=== PATIENT | female | born 1965 | race Caucasian/White ===

== ENCOUNTER → 2020-02-14 16:12 | Outpatient (CLI) | payer BC, SELFPAY ==
--- NOTE | ~2020-02-14 | MM_ITS ---
EXAMINATION: MM screening [facility] BI w jae HISTORY: Screening mammogram TECHNIQUE: Craniocaudal and mediolateral oblique 3-D tomosynthesis images were obtained and synthetic 2-D images were generated. CAD analysis was submitted and interpreted. COMPARISON: Comparison to multiple prior studies sequentially, with oldest reviewed study dated 08/20. BREAST PARENCHYMAL COMPOSITION: The breasts are heterogeneously dense, which may obscure small masses . FINDINGS: There are developing asymmetries in the upper outer quadrant of the right breast. The left breast is stable without evidence for malignancy. IMPRESSION: 1. Developing right breast asymmetries, upper outer quadrant. 2. Additional mammographic views and possible breast ultrasound are recommended. BI-RADS Category 0: Incomplete: Needs additional imaging evaluation. Reviewed, dictated and finalized at location A. IMPRESSION: 1. Developing right breast asymmetries, upper outer quadrant. 2. Additional mammographic views and possible breast ultrasound are recommended . BI-RADS Category 0: Incomplete: Needs additional imaging evaluation.
== END ==
PROVIDERS: PCP Internal Medicine; Visit Provider Obstetrics & Gynecology
DX: Z12.31 Encounter for screening mammogram for malignant neoplasm of breast (principal); R92.8 Other abnormal and inconclusive findings on diagnostic imaging of breast
CPT/HCPCS: 77063; 77067

== ENCOUNTER → 2020-03-05 07:42 | Outpatient (CLI) | payer BC, SELFPAY ==
--- NOTE | ~2020-03-05 | MM_ITS ---
EXAMINATION: MM diagnostic mammo unilat RT HISTORY: Right breast asymmetries on screening mammogram TECHNIQUE: Additional 3-D tomosynthesis images of the right breast were performed and synthetic 2-D i mages were generated. CAD analysis was submitted and interpreted. COMPARISON: 02/14/2020, 01/24/2019, 01/22/2018, 10/23/2015 FINDINGS: No persistent asymmetry is identified with spot compression of the right breast. There is a return to baseline fibroglandular appearance. No suspicious calcification or architectural distortio n are identified. IMPRESSION: 1. No mammographic evidence of malignancy. 2. Recommend routine screening mammography in one year. BI-RADS Category 1: Negative Reviewed, dictated and finalized at location A.
== END ==
PROVIDERS: PCP Internal Medicine; Visit Provider Obstetrics & Gynecology
DX: R92.8 Other abnormal and inconclusive findings on diagnostic imaging of breast (principal)
CPT/HCPCS: 77065

== ENCOUNTER 2020-05-22 12:31 | Outpatient (CLI) | payer BC, SELFPAY ==
--- NOTE | ~2020-05-22 | US_ITS ---
EXAMINATION: US retroperitoneal comp EXAM DATE: 05/22/2020 13:25 INDICATION: Chronic kidney disease. TECHNIQUE: Multiple grayscale and Doppler images of the retroperitoneum, kidneys were obtained (by a technologist who performed the scan) and subsequently reviewed. Comparison is made to prior examinati on from 07/24/2018. FINDINGS: There is moderate bilateral renal cortical thinning. Right kidney: There is normal contour and echogenicity. It measures 9.1 x 5.1 x 4.3 centimeters. Th ere are no focal renal lesions identified. There is no hydronephrosis. Left kidney: There is normal contour and echogenicity. It measures 9.7 x 5.2 x 5.2 centimeters. The re are no focal renal lesions identified. There is no hydronephrosis. Bladder unremarkable. IMPRESSION: 1. Moderate bilateral renal cortical thinning. Reviewed, dictated and finalized at location B.
== END 2020-05-22 12:32 | disposition home or self-care (01) ==
PROVIDERS: PCP Internal Medicine
DX: N18.9 Chronic kidney disease, unspecified (principal)
CPT/HCPCS: 76770

== ENCOUNTER → 2020-07-17 16:01 | Outpatient (CLI) | payer BC, SELFPAY ==
--- NOTE | ~2020-07-17 | XR_ITS ---
EXAMINATION: XR foot LT min 3V, XR ankle LT min 3V EXAM DATE: 07/17/2020 16:24 INDICATION: No known recent injury provided at this time. Pain of the left foot and ankle anteriorly . TECHNIQUE: Left foot dorsoplantar, lateral and oblique projections obtained and reviewed. Left ankle frontal, lateral and oblique projections obtained and reviewed. There is no prior study for compari son. FINDINGS: Left metatarsal bones unremarkable. The left ankle mortise appears intact. There are no acute fractures or dislocations identified. There is no subcutaneous gas. The soft tissue is unrem arkable. There are no radiopaque foreign bodies. IMPRESSION: 1. Unremarkable left foot, ankle exam. Reviewed, dictated and finalized at location B. IMPRESSION: 1. Unremarkable left foot, ankle exam.
--- NOTE | ~2020-07-17 | XR_ITS ---
EXAMINATION: XR ankle RT min 3V, XR foot RT min 3V EXAM DATE: 07/17/2020 16:24 INDICATION: Anterior and medial right foot and ankle pain intermittent. TECHNIQUE: Right foot dorsoplantar, lateral and oblique projections obtained and reviewed. Right ank le frontal, lateral and oblique projections obtained and reviewed. There is no prior study for [facility]. FINDINGS: Right metatarsal bones unremarkable. The right ankle mortise appears intact. There are n o acute fractures or dislocations identified. There is no subcutaneous gas. The soft tissue is unre markable. There are no radiopaque foreign bodies. IMPRESSION: 1. Unremarkable right foot, ankle exam. Reviewed, dictated and finalized at location B. IMPRESSION: 1. Unremarkable right foot, ankle exam.
== END ==
PROVIDERS: Visit Provider Nurse Practitioner Adult Health
DX: M25.571 Pain in right ankle and joints of right foot (principal)
CPT/HCPCS: 73610; 73630

== ENCOUNTER → 2021-04-22 17:03 | Outpatient (CLI) | payer BC, SELFPAY ==
--- NOTE | ~2021-04-22 | MM_ITS ---
EXAMINATION: MM screening [facility] BI w jae HISTORY: Screening mammogram TECHNIQUE: Craniocaudal and mediolateral oblique 3-D tomosynthesis images were obtained and synthetic 2-D images were generated. CAD analysis was submitted and interpreted. COMPARISON: No prior mammogram is available for comparison at this institution. BREAST PARENCHYMAL COMPOSITION: The breasts are heterogeneously dense, which may obscure small masses . FINDINGS: Occasional benign calcification. There is no evidence of suspicious mass, calcification, or architectural distortion to suggest malignancy in either breast. There has been no suspicious interv al change. IMPRESSION: 1. No mammographic evidence of malignancy. 2. Recommend routine screening mammography in one year. BI-RADS Category 2: Benign finding(s). Reviewed, dictated and finalized at location A.
== END ==
PROVIDERS: Visit Provider Internal Medicine
DX: Z12.31 Encounter for screening mammogram for malignant neoplasm of breast (principal)
CPT/HCPCS: 77063; 77067

== ENCOUNTER 2021-06-07 01:06 | Day surgery (SDC) | payer BC, SELFPAY ==
[2021-05-22 10:03] VITALS: BMI 28.5
[2021-06-07 07:35] VITALS: BMI 28.7
[2021-06-07 07:39] VITALS: BP 129/81; PULSE 78; RESP 16; TEMP 36.2; O2SAT 100
[2021-06-07] MEDS: LACTATED RINGERS 1,000 ML 150 ML IV CONT (07:45)
--- NOTE | 2021-06-07 07:53 | WPDANESEPPF ---
Anes - Initial Pre Proc Eval Procedure: Operation Date: 06/07/21 08:30 Proposed Procedures p Esophagogastroduodenoscopy - Jeromy Zavala MD Date/Time: 06/07/21 07:53 Surgeon: Jeromy Zavala MD Pre Op Diagnosis: GERD Patient Data Age: 55 Gender: F Height: 1.6 m Weight: 73.6 kg Last Vital Signs Temp 97.2 F L 06/07/21 07:39 Pulse 78 06/07/21 07:39 Resp 16 06/07/21 07:39 BP 129/81 06/07/21 07:39 Pulse Ox 100 06/07/21 07:39 Allergies Allergy/AdvReac Type Severity Reaction Status Date / Time No Known Allergies Allergy Verified 06/07/21 07:32 Home Medications Medication Instructions Recorded Confirmed Type aspirin [Adult Aspirin EC Low 81 mg PO DAILY 05/22/21 05/22/21 History Strength] biotin 5,000 mcg SUBLINGUAL DAILY 05/22/21 05/22/21 History cetirizine 10 mg PO DAILY 05/22/21 05/22/21 History duloxetine 20 mg PO DAILY 05/22/21 05/22/21 History ergocalciferol (vitamin D2) 50,000 unit PO WEEKLY 05/22/21 05/22/21 History famotidine 20 mg PO DAILY PRN 05/22/21 05/22/21 History fluticasone propionate 2 spray INTRANASAL HS 05/22/21 05/22/21 History losartan 25 mg PO DAILY 05/22/21 05/22/21 History metoprolol succinate 25 mg PO HS 05/22/21 05/22/21 History naltrexone 1.5 mg PO DAILY 05/22/21 05/22/21 History pramipexole 0.25 mg PO DAILY 05/22/21 05/22/21 History rosuvastatin 20 mg PO DAILY 05/22/21 05/22/21 History sumatriptan succinate 50 mg PO DIRECTED PRN 05/22/21 05/22/21 History Patient hx anesthesia problems: none Family hx anesthesia problems: none PMFSH Past Medical History Medical History (Updated 06/07/21 @ 07:52 by Michael Rondon MD) GERD (gastroesophageal reflux disease) Hyperlipidemia Hypertension Peripheral neuropathy Social History Social History Smoking status: Never smoker Alcohol intake: never Substance use: never Substance use type: does not use Living arrangements: with family Spiritual care concerns: No Anes - Eval Final PreProcedure Day of Procedure 06/07/21 07:53 Patient weight: overweight Heart: regular rate and rhythm Lungs: clear to auscultation Airway: Mallampati scale class II Neurological: alert and oriented Last oral intake: >/= 8 hours ASA classification: III Emergent: no Anesthetic plan: proceed Anesthesia type and monitoring: general GIVS and standard monitoring Informed Consent: The patient's anesthetic plan and its attendant risks and benefits were discussed with the patient/family/POA. Questions were solicited and answers provided to the satisfaction of the patient/family/POA.
--- NOTE | 2021-06-07 08:05 | PM.HPGS ---
History of Present Illness History of Present Illness Consent: Risks, benefits, and alternatives have been discussed and questions answered. Patient agrees to proceed with procedure. Chief complaint: GERD Narrative: Serena Barrios is a 55 year old female who for the past several months has had a discomfort when eating. In the lower substernal area it feels as though food is not going down all the way. If she has that sensation taking a few drinks will help it pass. She does not actually have to stop eating because of food impacting but often feels as though something is hung up. She also gets the sensation of being full before she is finished with the meal. This is in the epigastric area. She has not however lost weight, she has been gaining weight over the last couple years. She does not use anti-inflammatories except Excedrin for headaches Review of Systems Review of Systems: All systems reviewed & are unremarkable except as noted in HPI and below PMFSH Past Medical History Medical History GERD (gastroesophageal reflux disease) Hyperlipidemia Hypertension Peripheral neuropathy Social History Social History Smoking status: Never smoker Alcohol intake: never Substance use: never Substance use type: does not use Living arrangements: with family Spiritual care concerns: No Meds Home Medications and Allergies Home Medications Medication Instructions Recorded Confirmed Type aspirin [Adult Aspirin EC Low 81 mg PO DAILY 05/22/21 05/22/21 History Strength] biotin 5,000 mcg SUBLINGUAL DAILY 05/22/21 05/22/21 History cetirizine 10 mg PO DAILY 05/22/21 05/22/21 History duloxetine 20 mg PO DAILY 05/22/21 05/22/21 History ergocalciferol (vitamin D2) 50,000 unit PO WEEKLY 05/22/21 05/22/21 History famotidine 20 mg PO DAILY PRN 05/22/21 05/22/21 History fluticasone propionate 2 spray INTRANASAL HS 05/22/21 05/22/21 History losartan 25 mg PO DAILY 05/22/21 05/22/21 History metoprolol succinate 25 mg PO HS 05/22/21 05/22/21 History naltrexone 1.5 mg PO DAILY 05/22/21 05/22/21 History pramipexole 0.25 mg PO DAILY 05/22/21 05/22/21 History rosuvastatin 20 mg PO DAILY 05/22/21 05/22/21 History sumatriptan succinate 50 mg PO DIRECTED PRN 05/22/21 05/22/21 History Allergies Allergy/AdvReac Type Severity Reaction Status Date / Time No Known Allergies Allergy Verified 06/07/21 07:32 Vital Signs Vital Signs - 24 hr 06/07/21 07:39 Temperature 36.2 C L Pulse Rate 78 Respiratory Rate 16 Blood Pressure 129/81 Pulse Oximetry 100 Exam Const: General: alert Orientation/consciousness: patient oriented x3 Resp: Auscultation: clear to auscultation bilaterally Cardio: Rhythm: regular rhythm GI: GI Palp: Yes Soft to palpation and No Tenderness to palpation present (GI) Neuro: General: patient oriented x3 Assessment and Plan Assessment and plan (1) Dysphagia: Code(s): R13.10 - Dysphagia, unspecified Status: Acute Assessment and Plan: EGD with possible biopsy or dilatation or cautery.
[2021-06-07 08:51] VITALS: BP 120/75; PULSE 77; RESP 28; O2SAT 97
[2021-06-07 09:01] VITALS: BP 119/81; PULSE 81; RESP 25; O2SAT 98
[2021-06-07 09:10] VITALS: BP 127/82; PULSE 71; RESP 23; O2SAT 99
== END 2021-06-07 09:30 | disposition home or self-care (01) ==
PROVIDERS: PCP Internal Medicine; Visit Provider Internal Medicine Gastroenterology
PROC: 0DJ08ZZ Inspection of Upper Intestinal Tract, Via Natural or Artificial Opening Endoscopic (ICD-10-PCS; CPT 43235; principal; 2021-06-07 08:30)
DX: K22.2 Esophageal obstruction (principal); K21.9 Gastro-esophageal reflux disease without esophagitis; K25.3 Acute gastric ulcer without hemorrhage or perforation; Z79.82 Long term (current) use of aspirin; E78.5 Hyperlipidemia, unspecified; I10 Essential (primary) hypertension; G62.9 Polyneuropathy, unspecified
CPT/HCPCS: 43239; 43249; 87081; 88305; J2704; J7120

== ENCOUNTER → 2022-07-11 11:09 | Outpatient (CLI) | payer BC, SELFPAY ==
--- NOTE | ~2022-07-11 | MM_ITS ---
EXAMINATION: MM screening [facility] BI w jae HISTORY: Screening mammogram TECHNIQUE: Craniocaudal and mediolateral oblique 3-D tomosynthesis images were obtained and synthetic 2-D images were generated. CAD analysis was submitted and interpreted. COMPARISON: 04/22/2021, 03/05/2020, 02/14/2020, 01/24/2019 BREAST PARENCHYMAL COMPOSITION: The breasts are heterogeneously dense, which may obscure small masses . FINDINGS: There is no suspicious mass, calcification, or architectural distortion to suggest malignan cy in either breast. There has been no suspicious interval change. IMPRESSION: 1. No mammographic evidence of malignancy. 2. Recommend routine screening mammography in one year. BI-RADS Category 1: Negative Reviewed, dictated and finalized at location A.
== END ==
PROVIDERS: PCP Internal Medicine; Visit Provider Internal Medicine
DX: Z12.31 Encounter for screening mammogram for malignant neoplasm of breast (principal)
CPT/HCPCS: 77063; 77067

== ENCOUNTER → 2023-09-23 11:59 | Outpatient (CLI) | payer BC, SELFPAY ==
--- NOTE | ~2023-09-23 | MM_ITS ---
EXAMINATION: MM screening [facility] BI w jae HISTORY: Screening mammogram TECHNIQUE: Craniocaudal and mediolateral oblique 3-D tomosynthesis images were obtained and synthetic 2-D images were generated. CAD analysis was submitted and interpreted. COMPARISON: 07/11/2022, 04/18/2021 bilateral screening mammogram examinations 03/05/2020 diagnostic right mammogram 02/14/2020 by lateral screening mammogram BREAST PARENCHYMAL COMPOSITION: The breasts are heterogeneously dense, which may obscure small masses . FINDINGS: There is architectural distortion in the posterior central right breast on MLO view; diagno stic right mammogram and right breast ultrasound examination are recommended. Otherwise no no evidence of suspicious mass, calcification, or architectural distortion to suggest ma lignancy in either breast. There has been no other suspicious interval change. IMPRESSION: 1. Suggestion of architectural distortion on the right 2. Diagnostic right mammogram and right breast ultrasound examination are recommended BI-RADS Category 0: Incomplete: Needs additional imaging evaluation. Reviewed, dictated and finalized at location A. IMPRESSION: 1. Suggestion of architectural distortion on the right 2. Diagnostic right mammogram and right breast ultrasound examination are recom mended BI-RADS Category 0: Incomplete: Needs additional imaging evaluation.
== END ==
PROVIDERS: PCP Internal Medicine; Visit Provider Internal Medicine
DX: Z12.31 Encounter for screening mammogram for malignant neoplasm of breast (principal); R92.8 Other abnormal and inconclusive findings on diagnostic imaging of breast
CPT/HCPCS: 77063; 77067

== ENCOUNTER → 2023-10-28 08:38 | Outpatient (CLI) | payer BC, SELFPAY ==
--- NOTE | ~2023-10-28 | MMUS_ITS ---
EXAMINATION: MM diagnostic [facility] RT w jae, US breast RT complete HISTORY: Architectural distortion suggested in the posterior central right breast on screening MLO vi ew of 09/23/2025 TECHNIQUE: Additional 3-D tomosynthesis images of the right breast were performed and synthetic 2-D i mages were generated. CAD analysis was submitted and interpreted. High resolution complete right ja st ultrasound examination including all 4 quadrants and subareolar area was performed. COMPARISON: 09/23/2023, 07/11/2022, 04/22/2021 bilateral screening mammogram examinations. FINDINGS: MAMMOGRAPHIC FINDINGS: No suspicious mass or architectural distortion is evident on these supplemental views. No malignant c alcification, skin thickening or retraction. ULTRASOUND: There are several small oval or round circumscribed sonolucent or hypoechoic areas without suspicious shadowing or internal vascularity, situated at 9:00 1 cm from nipple, 9:00 5 cm from nipple and 10:0 0 3 cm from nipple, the largest measuring up to 4.7 mm maximal dimension. No suspicious mass or shadowing of the complete right breast is detected. IMPRESSION: 1. Benign findings 2. Routine annual mammographic screening is recommended. BI-RADS Category 2: Benign finding(s). Reviewed, dictated and finalized at location A. ER IMPRESSION: 1. Benign findings 2. Routine annual mammographic screening is recommended. BI-RADS Category 2: Benign finding(s).
== END ==
PROVIDERS: PCP Internal Medicine; Visit Provider Internal Medicine
DX: R92.8 Other abnormal and inconclusive findings on diagnostic imaging of breast (principal)
CPT/HCPCS: 76641; 77061; 77065; G0279

== ENCOUNTER 2024-02-10 16:29 | Outpatient (CLI) | payer BC, SELFPAY ==
--- NOTE | ~2024-02-10 | US_ITS ---
EXAMINATION: US renal BI DATE: 02/10/2024 16:43 INDICATION: Stage III chronic kidney disease TECHNIQUE: Multiple ultrasound grayscale images of the kidneys were obtained. COMPARISON: None. FINDINGS: The right kidney measures 10.0 x 4.4 x 6.4 cm. The left kidney measures 10.2 x 5.1 x 4.7 cm. Again se en is diffuse cortical thinning at both kidneys with normal echogenicity. There is no hydronephrosis in either kidney. No stones identified. The bladder is normal. IMPRESSION: 1. Bilateral mild diffuse renal cortical atrophy. No hydronephrosis. Reviewed, dictated and finalized at location B.
== END 2024-02-10 16:30 ==
LOC: MICIMG 16:30
PROVIDERS: PCP Specialist; Visit Provider Specialist
DX: N26.1 Atrophy of kidney (terminal) (principal); N18.31 Chronic kidney disease, stage 3a
CPT/HCPCS: 76775

== ENCOUNTER 2025-01-23 13:09 | Outpatient (CLI) | payer OTHER, SELFPAY ==
--- NOTE | ~2025-01-23 | US_ITS ---
EXAMINATION: US retroperitoneal comp DATE: 01/23/2025 13:32 INDICATION: Chronic kidney disease TECHNIQUE: Multiple ultrasound grayscale images of the kidneys were obtained. COMPARISON: None. FINDINGS: The right kidney measures 10.5 x 4.6 x 5.3 cm. The left kidney measures 10.2 x 5.0 x 5.4 cm. The kidn eys demonstrate normal echogenicity. There is no hydronephrosis in either kidney. No stones identifi ed. The bladder is normal with calculated prevoid bladder volume of 331 mL and no discernible postvoi d residual. IMPRESSION: 1. Normal kidneys without hydronephrosis. Reviewed, dictated and finalized at location B. RESSIONAL AIDE
== END 2025-01-23 13:10 | disposition home or self-care (01) ==
LOC: MICIMG 13:10
PROVIDERS: PCP Specialist; Visit Provider Specialist
DX: N18.30 Chronic kidney disease, stage 3 unspecified (principal)
CPT/HCPCS: 76770

== ENCOUNTER 2025-02-27 13:50 | Outpatient (CLI) | payer OTHER, SELFPAY ==
--- NOTE | ~2025-02-27 | MM_ITS ---
EXAMINATION: MM screening [facility] BI w jae HISTORY: Screening mammogram TECHNIQUE: Craniocaudal and mediolateral oblique 3-D tomosynthesis images were obtained and synthetic 2-D images were generated. CAD analysis was submitted and interpreted. COMPARISON: 09/23/2023, 07/11/2022, 04/22/2021 BREAST PARENCHYMAL COMPOSITION:Not Dense. There are scattered areas of fibroglandular density. FINDINGS: No suspicious mass, calcification, or architectural distortion are identified in either elma ast to suggest malignancy. There has been no suspicious interval change. IMPRESSION: No mammographic evidence of malignancy. Recommend routine screening mammography in one year. BI-RADS Category 1: Negative Reviewed, dictated and finalized at location .
== END 2025-02-27 13:51 | disposition home or self-care (01) ==
PROVIDERS: PCP Internal Medicine; Visit Provider Internal Medicine
DX: Z12.31 Encounter for screening mammogram for malignant neoplasm of breast (principal)
CPT/HCPCS: 77063; 77067